=== PATIENT | female | born 1995 | race African-American/Black ===

== ENCOUNTER 2019-08-19 15:16 | Emergency (ER) | payer MEDICAID ==
[2019-08-19] MEDS ORDERED: LORazepam INJ* 2 MG/ML 1 ML VIAL ONE (15:21)
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
[2019-08-19 19:09] LABS: ABS Basophils 0.1 10^3/ul (0-0.2); ABS Lymphocytes 1.8 10^3/ul (1.0-4.8); ABS Monocytes 0.2 10^3/ul (0-0.8); ABS Neutrophils 4.5 10^3/ul (1.5-7.7); Eosinophil % 0.2 %; Hematocrit 41 % (35-47); Lymphocyte % 27.6 %; Mean Corpuscular HGB Conc 34 g/dL (31-36); Mean Corpuscular Hemoglobin 32 pg (27-31); Mean Corpuscular Volume 95 fL (80-97); Mean Platelet Volume 7.5 fL (7.4-10.4); Nucleated Red Blood Cells % 0.1; Platelet Count 268 10^3/uL (150-450); Red Blood Count 4.34 10^6 /uL (3.70-4.87); Red Cell Distribution Width 14 % (10-15); White Blood Count 6.7 10^3/uL (3.5-10.8)
[2019-08-19 19:23] LABS: Urine Benzodiazepine Screen None Detected (None Detect); Urine Opiates Screen None Detected (None Detect)
[2019-08-19 19:23] LABS: ALT 13 U/L (7-52); AST 22 U/L (13-39); Albumin 4.5 g/dL (3.2-5.2); Albumin/Globulin Ratio 1.4 (1-3); Alkaline Phosphatase 60 U/L (34-104); Anion Gap 5 mmol/L (2-11); Blood Urea Nitrogen 15 mg/dL (6-24); CO2 Carbon Dioxide 27 mmol/L (22-32); Calcium 9.9 mg/dL (8.6-10.3); Chloride 106 mmol/L (101-111); EGFR African American 110.1 (>60); Globulin 3.3 g/dL (2-4); Glucose 94 mg/dL (70-100); Potassium 3.7 mmol/L (3.5-5.0); Sodium 138 mmol/L (135-145); Total Protein 7.8 g/dL (6.4-8.9)
[2019-08-19 19:29] LABS: HCG Pregnancy < 0.60 mIU/mL
[2019-08-19 19:54] LABS: Acetaminophen < 15 mcg/mL; Alcohol < 10 mg/dL (<10); Salicylate < 2.50 mg/dL (<30)
[2019-08-19 20:12] VITALS: BP 118/87
== END 2019-08-19 20:11 | disposition home or self-care (01) ==
LOC: ED 15:16
DX: F39 Unspecified mood [affective] disorder (principal); F31.9 Bipolar disorder, unspecified; F17.210 Nicotine dependence, cigarettes, uncomplicated
CPT/HCPCS: 36415; 80053; 80307; 80320; 80329; 84702; 85025; 99285; G0480; J2060

== ENCOUNTER 2020-04-05 12:42 | Inpatient (IN) ==
[2020-04-05] MEDS ORDERED: Lorazepam PYXIS KEY PRN (13:25)
[2020-04-05] MEDS ORDERED: LORazepam 2 mg VIAL 1 ml IM ONE (13:25)
[2020-04-05] MEDS ORDERED: diPHENhydraMINE IV 50 MG/ML 1 ml VIAL (BENADRYL) IM ONE (13:25)
[2020-04-05] MEDS ORDERED: Haloperidol 5 mg/ml SDV IV/IM 5 MG/ML AMP IM ONE (13:26)
[2020-04-05] MEDS ORDERED: LORazepam 2 mg VIAL 1 ml ONE (13:27)
[2020-04-05 14:44] LABS: ABS Lymphocytes 1.8 10^3/ul (1.0-4.8); ABS Monocytes 0.2 10^3/ul (0-0.8); ABS Neutrophils 2.9 10^3/ul (1.5-7.7); Eosinophil % 0.6 %; Hematocrit 43 % (35-47); Hemoglobin 14.2 g/dL (12.0-16.0); Lymphocyte % 36.2 %; Mean Corpuscular HGB Conc 33 g/dL (31-36); Mean Corpuscular Hemoglobin 32 pg (27-31); Mean Corpuscular Volume 95 fL (80-97); Mean Platelet Volume 8.7 fL (7.4-10.4); Platelet Count 237 10^3/uL (150-450); Red Blood Count 4.46 10^6 /uL (3.70-4.87); Red Cell Distribution Width 13 % (10-15)
[2020-04-05 15:05] LABS: HCG Pregnancy < 0.60 mIU/mL
[2020-04-05 15:07] LABS: ALT 9 U/L (7-52); AST 21 U/L (13-39); Albumin 4.6 g/dL (3.2-5.2); Albumin/Globulin Ratio 1.6 (1-3); Alkaline Phosphatase 53 U/L (34-104); Anion Gap 7 mmol/L (2-11); BUN/Creatinine Ratio 15.9 (8-20); Blood Urea Nitrogen 14 mg/dL (6-24); CO2 Carbon Dioxide 24 mmol/L (22-32); Calcium 9.7 mg/dL (8.6-10.3); Chloride 107 mmol/L (101-111); EGFR African American 97.2 (>60); EGFR Non-African American 80.4 (>60); Globulin 2.9 g/dL (2-4); Glucose 108 mg/dL (70-100); Potassium 3.6 mmol/L (3.5-5.0); Sodium 138 mmol/L (135-145); Total Protein 7.5 g/dL (6.4-8.9)
[2020-04-05 15:38] LABS: Acetaminophen < 15 mcg/mL; Alcohol, S < 10 mg/dL (<10); Salicylate < 2.50 mg/dL (<30)
[2020-04-05] MEDS ORDERED: Al Hydrox/Mg Hydrox/Simet LIQ 30 ML UDC PO PRN (19:56)
[2020-04-05] MEDS ORDERED: Nicotine GUM 2MG FRUIT FLAVOR PO PRN (20:00)
[2020-04-06] MEDS ORDERED: Influenza VAC *QUAD* 2020-21* 0.5 ML SYRINGE IM ONE (09:00)
[2020-04-06] MEDS: Vitamin THERAPEUTIC TAB PO SCH (11:25)
[2020-04-07] MEDS: Vitamin THERAPEUTIC TAB PO SCH (10:30)
[2020-04-07] MEDS ORDERED: Albuterol HFA INHALER 8 gm MDI INH PRN (13:25)
[2020-04-08] MEDS: Vitamin THERAPEUTIC TAB PO SCH (10:44)
[2020-04-09] MEDS: Vitamin THERAPEUTIC TAB PO SCH (11:34)
[2020-04-10] MEDS: Vitamin THERAPEUTIC TAB PO SCH (09:01)
[2020-04-11] MEDS ORDERED: diPHENhydraMINE IV 50 MG/ML 1 ml VIAL (BENADRYL) IM ONE (07:30)
[2020-04-11] MEDS ORDERED: LORazepam 2 mg VIAL 1 ml IM ONE (07:30)
[2020-04-11] MEDS ORDERED: Haloperidol 5 mg/ml SDV IV/IM 5 MG/ML AMP IM ONE (07:30)
[2020-04-11] MEDS ORDERED: Lorazepam PYXIS KEY ONE (07:32)
[2020-04-11] MEDS ORDERED: diPHENhydraMINE IV 50 MG/ML 1 ml VIAL (BENADRYL) ONE (07:32)
[2020-04-11] MEDS ORDERED: Haloperidol 5 mg/ml SDV IV/IM 5 MG/ML AMP ONE (07:33)
[2020-04-11] MEDS ORDERED: LORazepam 2 mg VIAL 1 ml ONE (07:33)
[2020-04-11] MEDS: Vitamin THERAPEUTIC TAB PO SCH (10:25)
[2020-04-12] MEDS ORDERED: Haloperidol 5 mg/ml SDV IV/IM 5 MG/ML AMP IM ONE (08:05)
[2020-04-12] MEDS ORDERED: Lorazepam PYXIS KEY PRN (08:05)
[2020-04-12] MEDS ORDERED: Haloperidol 5 mg/ml SDV IV/IM 5 MG/ML AMP ONE (08:05)
[2020-04-12] MEDS ORDERED: Lorazepam PYXIS KEY ONE (08:05)
[2020-04-12] MEDS ORDERED: LORazepam 2 mg VIAL 1 ml IM ONE (08:05)
[2020-04-12] MEDS ORDERED: LORazepam 2 mg VIAL 1 ml ONE (08:07)
[2020-04-12] MEDS: Vitamin THERAPEUTIC TAB PO SCH (13:20)
[2020-04-13] MEDS: Vitamin THERAPEUTIC TAB PO SCH (08:17)
[2020-04-14] MEDS: Vitamin THERAPEUTIC TAB PO SCH (08:23)
[2020-04-15] MEDS: Vitamin THERAPEUTIC TAB PO SCH (08:09)
[2020-04-16] MEDS: Vitamin THERAPEUTIC TAB PO SCH (08:16)
[2020-04-16] MEDS ORDERED: OLANzapine 5 mg TAB*ODT PO ONE (18:00)
[2020-04-17] MEDS: Vitamin THERAPEUTIC TAB PO SCH (11:17)
[2020-04-18] MEDS: Vitamin THERAPEUTIC TAB PO SCH (08:24)
[2020-04-19] MEDS: Vitamin THERAPEUTIC TAB PO SCH (07:41)
[2020-04-20] MEDS: Vitamin THERAPEUTIC TAB PO SCH (08:41)
[2020-04-21] MEDS: Vitamin THERAPEUTIC TAB PO SCH (08:38)
[2020-04-22] MEDS: Vitamin THERAPEUTIC TAB PO SCH (07:39)
[2020-04-23] MEDS: Vitamin THERAPEUTIC TAB PO SCH (09:24)
[2020-04-24] MEDS: Vitamin THERAPEUTIC TAB PO SCH (07:25)
[2020-04-24 08:13] VITALS: BP 104/67
== END 2020-04-24 09:20 | DRG 750 ==
LOC: ED 12:42 → BSU 18:38
PROVIDERS: ADMIT Psychiatry & Neurology Psychiatry; ATTEND Psychiatry & Neurology Psychiatry

== ENCOUNTER 2020-09-16 11:02 | Inpatient (IN) ==
[2020-09-16] MEDS ORDERED: diPHENhydraMINE IV 50 MG/ML 1 ml VIAL (BENADRYL) IM ONE (11:04)
[2020-09-16] MEDS ORDERED: Lorazepam PYXIS KEY PRN (11:05)
[2020-09-16] MEDS ORDERED: Haloperidol 5 mg/ml SDV IV/IM 5 MG/ML AMP IM ONE (11:05)
[2020-09-16] MEDS ORDERED: LORazepam 2 mg VIAL 1 ml IM ONE (11:05)
[2020-09-16] MEDS ORDERED: LORazepam 2 mg VIAL 1 ml ONE (11:06)
[2020-09-16] MEDS ORDERED: Nicotine PATCH 14 MG/24 HR PATCH TRANSDERM ONE (11:37)
[2020-09-16] MEDS ORDERED: Al Hydrox/Mg Hydrox/Simet LIQ 30 ML UDC PO PRN (12:20)
[2020-09-17 14:48] LABS: ABS Lymphocytes 1.9 10^3/ul (1.0-4.8); ABS Monocytes 0.4 10^3/ul (0-0.8); Hematocrit 39 % (35-47); Hemoglobin 13.1 g/dL (12.0-16.0); Lymphocyte % 22.5 %; Mean Corpuscular HGB Conc 34 g/dL (31-36); Mean Corpuscular Hemoglobin 32 pg (27-31); Mean Corpuscular Volume 95 fL (80-97); Mean Platelet Volume 7.1 fL (7.4-10.4); Platelet Count 293 10^3/uL (150-450); Red Blood Count 4.08 10^6 /uL (3.70-4.87); Red Cell Distribution Width 14 % (10-15); White Blood Count 8.4 10^3/uL (3.5-10.8)
[2020-09-17 19:10] LABS: Albumin 4.3 g/dL (3.2-5.2); Anion Gap 6 mmol/L (2-11); CO2 Carbon Dioxide 27 mmol/L (22-32); Calcium 9.4 mg/dL (8.6-10.3); Chloride 106 mmol/L (101-111); Potassium 3.8 mmol/L (3.5-5.0); Sodium 139 mmol/L (135-145)
[2020-09-17 19:16] LABS: ALT 19 U/L (7-52); AST 29 U/L (13-39); Albumin/Globulin Ratio 1.8 (1-3); Alkaline Phosphatase 56 U/L (34-104); Blood Urea Nitrogen 18 mg/dL (6-24); EGFR African American 91.5 (>60); EGFR Non-African American 75.6 (>60); Globulin 2.4 g/dL (2-4); Glucose 81 mg/dL (70-100); Total Protein 6.7 g/dL (6.4-8.9)
[2020-09-17 19:54] LABS: HCG Pregnancy < 0.60 mIU/mL
[2020-09-21 08:24] LABS: HDL Cholesterol 82.2 mg/dL
[2020-09-21] MEDS: Lactulose 30 ml UDC PO SCH (20:14)
[2020-09-22] MEDS: Lactulose 30 ml UDC PO SCH (20:10)
[2020-09-23] MEDS: Lactulose 30 ml UDC PO SCH (19:56)
[2020-09-24] MEDS: Lactulose 30 ml UDC PO SCH (20:27)
[2020-09-25 16:07] LABS: ABS Basophils 0.1 10^3/ul (0-0.2); ABS Lymphocytes 2.5 10^3/ul (1.0-4.8); ABS Monocytes 0.4 10^3/ul (0-0.8); ABS Neutrophils 4.9 10^3/ul (1.5-7.7); Hematocrit 39 % (35-47); Lymphocyte % 31.2 %; Mean Corpuscular HGB Conc 34 g/dL (31-36); Mean Corpuscular Hemoglobin 32 pg (27-31); Mean Corpuscular Volume 95 fL (80-97); Mean Platelet Volume 7.4 fL (7.4-10.4); Platelet Count 250 10^3/uL (150-450); Red Blood Count 4.09 10^6 /uL (3.70-4.87); Red Cell Distribution Width 14 % (10-15); White Blood Count 7.9 10^3/uL (3.5-10.8)
[2020-09-25] MEDS: Lactulose 30 ml UDC PO SCH (20:40)
[2020-09-26] MEDS: Lactulose 30 ml UDC PO SCH (20:22)
[2020-09-27] MEDS: Albuterol HFA INHALER 8 gm MDI INH PRN (16:20)
[2020-09-27] MEDS: Lactulose 30 ml UDC PO SCH (20:17)
[2020-09-28] MEDS: Albuterol HFA INHALER 8 gm MDI INH PRN ×2 (12:43→18:03)
[2020-09-28] MEDS: Lactulose 30 ml UDC PO SCH (20:07)
[2020-09-29] MEDS: Albuterol HFA INHALER 8 gm MDI INH PRN ×3 (11:29→20:20)
[2020-09-29] MEDS: CMC:Lactase Enzyme (NF) 3,000 UNIT TAB PO SCH (17:10)
[2020-09-29] MEDS: Lactulose 30 ml UDC PO SCH (20:20)
[2020-09-30] MEDS: CMC:Lactase Enzyme (NF) 3,000 UNIT TAB PO SCH ×3 (07:54→16:57)
[2020-09-30] MEDS: Albuterol HFA INHALER 8 gm MDI INH PRN (10:56)
[2020-09-30] MEDS: Lactulose 30 ml UDC PO SCH (20:17)
[2020-10-01 08:14] LABS: ABS Basophils 0.1 10^3/ul (0-0.2); ABS Lymphocytes 2.5 10^3/ul (1.0-4.8); ABS Monocytes 0.4 10^3/ul (0-0.8); ABS Neutrophils 3.7 10^3/ul (1.5-7.7); Hematocrit 42 % (35-47); Hemoglobin 13.8 g/dL (12.0-16.0); Lymphocyte % 37.3 %; Mean Corpuscular HGB Conc 33 g/dL (31-36); Mean Corpuscular Hemoglobin 32 pg (27-31); Mean Corpuscular Volume 96 fL (80-97); Mean Platelet Volume 7.3 fL (7.4-10.4); Nucleated Red Blood Cells % 0.1; Platelet Count 219 10^3/uL (150-450); Red Blood Count 4.32 10^6 /uL (3.70-4.87); Red Cell Distribution Width 14 % (10-15); White Blood Count 6.6 10^3/uL (3.5-10.8)
[2020-10-01] MEDS: CMC:Lactase Enzyme (NF) 3,000 UNIT TAB PO SCH ×2 (10:15→11:54)
[2020-10-01 11:52] VITALS: BP 109/55
== END 2020-10-01 13:50 | disposition home or self-care (01) | DRG 750 ==
LOC: ED 11:02 → BSU 12:20 → ED 14:32
PROVIDERS: ADMIT Psychiatry & Neurology Psychiatry; ATTEND Psychiatry & Neurology Psychiatry

== ENCOUNTER 2021-02-09 16:22 | Inpatient (IN) ==
[2021-02-09 17:01] LABS: ABS Lymphocytes 2.3 10^3/ul (1.0-4.8); ABS Monocytes 0.3 10^3/ul (0-0.8); ABS Neutrophils 4.4 10^3/ul (1.5-7.7); Hematocrit 39 % (35-47); Hemoglobin 13.3 g/dL (12.0-16.0); Lymphocyte % 32.5 %; Mean Corpuscular HGB Conc 34 g/dL (31-36); Mean Corpuscular Hemoglobin 32 pg (27-31); Mean Corpuscular Volume 94 fL (80-97); Mean Platelet Volume 7.6 fL (7.4-10.4); Nucleated Red Blood Cells % 0.1; Platelet Count 344 10^3/uL (150-450); Red Blood Count 4.13 10^6 /uL (3.70-4.87); Red Cell Distribution Width 14 % (10-15)
[2021-02-09 17:06] LABS: Urine Appearance Cloudy; Urine Bilirubin Negative (Negative); Urine Blood Negative (Negative); Urine Color Amber; Urine Glucose Negative (Negative); Urine Ketones Trace (Negative); Urine Nitrite Negative (Negative); Urine Protein 1+(30 mg/dL) (Negative); Urine Specific Gravity 1.034 (1.002-1.030); Urine Urobilinogen Negative (Negative)
[2021-02-09 17:13] LABS: Urine Bacteria Absent (Absent); Urine Red Blood Cell Absent (Absent); Urine Squamous Epithelial Cell Present (Absent); Urine White Blood Cell Absent (Absent)
[2021-02-09 17:19] LABS: ALT 8 U/L (7-52); AST 15 U/L (13-39); Albumin 4.3 g/dL (3.2-5.2); Albumin/Globulin Ratio 1.5 (1-3); Alkaline Phosphatase 48 U/L (35-149); Anion Gap 7 mmol/L (2-11); Blood Urea Nitrogen 16 mg/dL (6-24); CO2 Carbon Dioxide 23 mmol/L (22-32); Calcium 8.9 mg/dL (8.6-10.3); Chloride 107 mmol/L (101-111); EGFR African American 96.4 (>60); EGFR Non-African American 79.6 (>60); Globulin 2.8 g/dL (2-4); Glucose 106 mg/dL (70-100); Potassium 3.5 mmol/L (3.5-5.0); Sodium 137 mmol/L (135-145); Total Protein 7.1 g/dL (6.4-8.9)
[2021-02-09 17:19] LABS: Urine Benzodiazepine Screen None Detected (None Detect); Urine Cannabinoids Screen Presumptive Positive (None Detect); Urine Opiates Screen None Detected (None Detect)
[2021-02-09 17:24] LABS: Acetaminophen < 15 mcg/mL; Alcohol, S < 13 mg/dL (<13); Salicylate < 2.50 mg/dL (<30)
[2021-02-09 17:25] LABS: HCG Pregnancy < 0.60 mIU/mL
[2021-02-09 17:38] LABS: TSH Ultra Thyroid Stim Horm 1.05 mcIU/mL (0.34-5.60)
[2021-02-09 22:40] LABS: Rapid COVID-19 Molecular Undetected (Undetected)
[2021-02-10] MEDS ORDERED: Al Hydrox/Mg Hydrox/Simet LIQ 30 ML UDC PO PRN (00:39)
[2021-02-10] MEDS: Vitamin THERAPEUTIC TAB PO SCH (11:55)
[2021-02-11] MEDS: Vitamin THERAPEUTIC TAB PO SCH (09:41)
[2021-02-12] MEDS: Vitamin THERAPEUTIC TAB PO SCH (10:11)
[2021-02-12] MEDS ORDERED: Paliperidone SUSTENNA 234 MG/1.5 ML IM ONE (14:00)
[2021-02-13] MEDS ORDERED: Flu vaccine *QUAD* 2021-22* 0.5 ML SYRINGE IM ONE (09:00)
[2021-02-13] MEDS: Vitamin THERAPEUTIC TAB PO SCH (09:52)
[2021-02-13] MEDS: Albuterol HFA INHALER 8 gm MDI INH PRN (21:09)
[2021-02-14] MEDS: Vitamin THERAPEUTIC TAB PO SCH (11:35)
[2021-02-14] MEDS: Albuterol HFA INHALER 8 gm MDI INH PRN (22:24)
[2021-02-15] MEDS: Vitamin THERAPEUTIC TAB PO SCH (09:32)
[2021-02-15 21:55] VITALS: BP 99/63
[2021-02-16] MEDS: Vitamin THERAPEUTIC TAB PO SCH (09:45)
[2021-02-16] MEDS ORDERED: Paliperidone SUSTENNA 156 MG/1 ML IM ONE (16:00)
[2021-02-16] MEDS: Albuterol HFA INHALER 8 gm MDI INH PRN (16:32)
[2021-02-17 08:17] LABS: HDL Cholesterol 54.6 mg/dL
[2021-02-17] MEDS ORDERED: Paliperidone SUSTENNA 156 MG/1 ML IM ONE (09:00)
[2021-02-17] MEDS: Vitamin THERAPEUTIC TAB PO SCH (09:57)
== END 2021-02-17 11:30 | disposition home or self-care (01) | DRG 750 ==
LOC: ED 16:22 → BSU 23:59
PROVIDERS: ADMIT Psychiatry & Neurology Psychiatry; ATTEND Psychiatry & Neurology Psychiatry

== ENCOUNTER 2021-09-09 16:24 | Inpatient (IN) ==
[2021-09-09 17:31] LABS: Urine Appearance Cloudy; Urine Bilirubin Negative (Negative); Urine Blood Negative (Negative); Urine Color Yellow; Urine Glucose Negative (Negative); Urine Ketones Trace (Negative); Urine Nitrite Negative (Negative); Urine Protein Negative (Negative); Urine Specific Gravity 1.033 (1.002-1.030); Urine Urobilinogen Negative (Negative)
[2021-09-09 17:32] LABS: ABS Monocytes 0.4 10^3/ul (0-0.8); ABS Neutrophils 4.7 10^3/ul (1.5-7.7); Eosinophil % 0.1 %; Hematocrit 39 % (35-47); Hemoglobin 13.3 g/dL (12.0-16.0); Lymphocyte % 27.9 %; Mean Corpuscular HGB Conc 34 g/dL (31-36); Mean Corpuscular Hemoglobin 32 pg (27-31); Mean Corpuscular Volume 93 fL (80-97); Mean Platelet Volume 7.7 fL (7.4-10.4); Nucleated Red Blood Cells % 0.2; Platelet Count 294 10^3/uL (150-450); Red Blood Count 4.18 10^6 /uL (3.70-4.87); Red Cell Distribution Width 14 % (10-15)
[2021-09-09 17:44] LABS: Urine Benzodiazepine Screen None Detected (None Detect); Urine Cannabinoids Screen Presumptive Positive (None Detect); Urine Opiates Screen None Detected (None Detect)
[2021-09-09 18:21] LABS: ALT 8 U/L (7-52); AST 16 U/L (13-39); Acetaminophen < 15 mcg/mL; Albumin 4.7 g/dL (3.2-5.2); Albumin/Globulin Ratio 1.6 (1-3); Alcohol, S < 13 mg/dL (<13); Alkaline Phosphatase 51 U/L (35-149); Anion Gap 9 mmol/L (2-11); Blood Urea Nitrogen 16 mg/dL (6-24); CO2 Carbon Dioxide 25 mmol/L (22-32); Calcium 9.7 mg/dL (8.6-10.3); Chloride 106 mmol/L (101-111); Globulin 2.9 g/dL (2-4); Glucose 82 mg/dL (70-100); Salicylate < 2.50 mg/dL (<30); Sodium 140 mmol/L (135-145); Total Protein 7.6 g/dL (6.4-8.9); eGFR CKD-EPI 99.5 (>60)
[2021-09-09 18:28] LABS: HCG Pregnancy < 0.60 mIU/mL
[2021-09-09] MEDS ORDERED: Al Hydrox/Mg Hydrox/Simet LIQ 30 ML UDC PO PRN (19:17)
[2021-09-09] MEDS ORDERED: Nicotine GUM 2MG FRUIT FLAVOR PO PRN (19:18)
[2021-09-10] MEDS: Multivitamins/Minerals TAB PO SCH (07:13)
[2021-09-11] MEDS: Multivitamins/Minerals TAB PO SCH (12:11)
[2021-09-12] MEDS: Multivitamins/Minerals TAB PO SCH (09:42)
[2021-09-12] MEDS ORDERED: Albuterol HFA INHALER 8 gm MDI INH PRN (17:03)
[2021-09-13] MEDS: Multivitamins/Minerals TAB PO SCH (10:00)
[2021-09-14 07:55] VITALS: BP 114/72
[2021-09-14] MEDS: Multivitamins/Minerals TAB PO SCH (11:27)
[2021-09-15] MEDS: Multivitamins/Minerals TAB PO SCH (08:32)
== END 2021-09-15 11:17 | disposition home or self-care (01) | DRG 750 ==
LOC: ED 16:24 → BSU 18:30 → ED 20:07 → BSU 20:07
PROVIDERS: ADMIT Psychiatry & Neurology Psychiatry; ATTEND Psychiatry & Neurology Psychiatry

== ENCOUNTER 2023-09-08 22:32 | Inpatient (IN) ==
[2023-09-08 23:56] LABS: ABS Basophils 0.1 10^3/uL (0.0-0.1); ABS Eosinophils 0.1 10^3/uL (0.0-0.5); ABS Lymphocytes 2.2 10^3/uL (1.0-4.8); ABS Monocytes 0.5 10^3/uL (0.0-0.9); ABS Nucleated RBC 0.02 10^3/ul; Eosinophil % 0.7 %; Hematocrit 40.3 % (35-45); Hemoglobin 13.8 g/dL (11.5-14.3); Mean Corpuscular Hemoglobin 31.1 pg (27-33); Mean Corpuscular Hgb Conc 34.1 g/dL (31-36); Mean Corpuscular Volume 91.1 fL (80-97); Mean Platelet Volume 8.6 fL (7.5-11.2); Nucleated Red Blood Cells % 0.2 %/100WBC (0.0-0.8); Platelet Count 273 10^3/uL (150-450); Red Blood Count 4.43 10^6/uL (3.63-4.92); Red Cell Distribution Width 15.9 % (12-17); White Blood Count 9.9 10^3/uL (3.8-11.8)
[2023-09-09 00:21] LABS: Urine Appearance Clear; Urine Bilirubin Negative (Negative); Urine Blood 3+ (Negative); Urine Color Yellow; Urine Glucose Negative (Negative); Urine Ketones Trace (Negative); Urine Nitrite Negative (Negative); Urine Protein 1+ (>=30 mg/dL) (Negative); Urine Specific Gravity 1.024 (1.002-1.030); Urine Urobilinogen 1+ (Negative); Urine pH 6.5 (5.0-8.0)
[2023-09-09 00:26] LABS: Urine Benzodiazepine Screen None Detected (None Detect); Urine Cannabinoids Screen None Detected (None Detect); Urine Opiates Screen None Detected (None Detect)
[2023-09-09 00:47] LABS: Urine Bacteria Absent /HPF (Absent); Urine Red Blood Cell Trace(0-2/hpf) /HPF (0-Trace); Urine Squamous Epithelial Cell Present /HPF (Absent); Urine White Blood Cell Trace(0-5/hpf) /HPF (0-Trace)
[2023-09-09 00:59] LABS: ALT 12 U/L (7-52); AST 15 U/L (13-39); Acetaminophen < 15 mcg/mL; Albumin 4.5 g/dL (3.2-5.2); Albumin/Globulin Ratio 1.5 (1-3); Alcohol, S < 13 mg/dL (<13); Alkaline Phosphatase 55 U/L (35-149); Anion Gap 10 mmol/L (2-16); Blood Urea Nitrogen 7 mg/dL (6-24); CO2 Carbon Dioxide 22 mmol/L (22-32); Calcium 9.6 mg/dL (8.6-10.3); Chloride 105 mmol/L (101-111); Glucose 137 mg/dL (70-100); Potassium 3.2 mmol/L (3.5-5.0); Salicylate < 2.50 mg/dL (<30); Sodium 137 mmol/L (135-145); Total Bilirubin 0.6 mg/dL (0.2-1.0); Total Protein 7.5 g/dL (6.4-8.9); eGFR CKD-EPI 104.1 (>60)
[2023-09-09 01:06] LABS: HCG Pregnancy < 0.60 mIU/mL
[2023-09-09] MEDS ORDERED: Al Hydrox/Mg Hydrox/Simet LIQ 30 ML UDC PO PRN (01:09)
[2023-09-09 01:14] LABS: TSH Ultra Thyroid Stim Horm 1.96 mcIU/mL (0.34-5.60)
[2023-09-09] MEDS: Nicotine GUM 2MG FRUIT FLAVOR PO PRN (12:12)
[2023-09-09] MEDS: Vitamin THERAPEUTIC TAB PO SCH (12:13)
[2023-09-09] MEDS: Nicotine PATCH 14 MG/24 HR PATCH ONE (12:26)
[2023-09-12] MEDS: Nicotine PATCH 14 MG/24 HR PATCH ONE (20:46)
[2023-09-12] MEDS: Nicotine PATCH 14 MG/24 HR PATCH TRANSDERM SCH (20:46)
[2023-09-13] MEDS: Paliperidone SUSTENNA 234 MG/1.5 ML IM ONE (17:20)
[2023-09-14 12:14] VITALS: BP 123/76
[2023-09-16] MEDS: Paliperidone SUSTENNA 156 MG/1 ML IM ONE (08:11)
== END 2023-09-16 11:20 | disposition home or self-care (01) | DRG 750 ==
LOC: ED 22:32 → EDHOLD 09-09 00:45 → BSU 09-09 07:25
PROVIDERS: ADMIT Psychiatry & Neurology Psychiatry; ATTEND Psychiatry & Neurology Psychiatry

== ENCOUNTER 2023-10-20 21:32 | Inpatient (IN) ==
[2023-10-20 22:50] LABS: ABS Basophils 0.1 10^3/uL (0.0-0.1); ABS Eosinophils 0.3 10^3/uL (0.0-0.5); ABS Monocytes 0.4 10^3/uL (0.0-0.9); ABS Neutrophils 5.5 10^3/uL (1.5-7.6); ABS Nucleated RBC 0.02 10^3/ul; Eosinophil % 2.7 %; Hematocrit 38.5 % (35-45); Hemoglobin 12.9 g/dL (11.5-14.3); Lymphocyte % 32.9 %; Mean Corpuscular Hemoglobin 31.2 pg (27-33); Mean Corpuscular Hgb Conc 33.4 g/dL (31-36); Mean Corpuscular Volume 93.2 fL (80-97); Nucleated Red Blood Cells % 0.2 %/100WBC (0.0-0.8); Platelet Count 269 10^3/uL (150-450); Red Blood Count 4.13 10^6/uL (3.63-4.92); Red Cell Distribution Width 15.4 % (12-17); White Blood Count 9.2 10^3/uL (3.8-11.8)
[2023-10-20 22:55] LABS: Urine Appearance Turbid; Urine Bilirubin Negative (Negative); Urine Blood 2+ (Negative); Urine Color Yellow; Urine Glucose Negative (Negative); Urine Ketones Trace (Negative); Urine Nitrite Negative (Negative); Urine Protein Trace (Negative); Urine Specific Gravity 1.033 (1.002-1.030); Urine Urobilinogen Negative (Negative)
[2023-10-20 23:04] LABS: Urine Bacteria 1+ /HPF (Absent); Urine Red Blood Cell 3+(>10/hpf) /HPF (0-Trace); Urine Squamous Epithelial Cell Present /HPF (Absent); Urine White Blood Cell 1+(6-10/hpf) /HPF (0-Trace)
[2023-10-20 23:11] LABS: Urine Benzodiazepine Screen None Detected (None Detect); Urine Cannabinoids Screen None Detected (None Detect); Urine Opiates Screen None Detected (None Detect)
[2023-10-20] MEDS ORDERED: Al Hydrox/Mg Hydrox/Simet LIQ 30 ML UDC PO PRN (23:37)
[2023-10-20 23:48] LABS: ALT 12 U/L (7-52); AST 19 U/L (13-39); Acetaminophen < 15 mcg/mL; Albumin 4.1 g/dL (3.2-5.2); Albumin/Globulin Ratio 1.7 (1-3); Alcohol, S < 13 mg/dL (<13); Alkaline Phosphatase 53 U/L (35-149); Anion Gap 10 mmol/L (2-16); Blood Urea Nitrogen 15 mg/dL (6-24); CO2 Carbon Dioxide 24 mmol/L (22-32); Calcium 9.1 mg/dL (8.6-10.3); Chloride 106 mmol/L (101-111); Creatinine, Serum 0.89 mg/dL (0.51-0.95); Globulin 2.4 g/dL (2-4); Potassium 3.8 mmol/L (3.5-5.0); Salicylate < 2.50 mg/dL (<30); Sodium 140 mmol/L (135-145); Total Bilirubin 0.4 mg/dL (0.2-1.0); Total Protein 6.5 g/dL (6.4-8.9); eGFR CKD-EPI 91.6 (>60)
[2023-10-20 23:54] LABS: TSH Ultra Thyroid Stim Horm 2.38 mcIU/mL (0.34-5.60)
[2023-10-21 00:05] LABS: Glucose 85 mg/dL (70-100)
[2023-10-21] MEDS: Vitamin THERAPEUTIC TAB PO SCH (10:00)
[2023-10-21] MEDS ORDERED: OLANZapine 5 mg TAB *ODT PO PRN (11:30)
[2023-10-21 12:31] LABS: HCG Pregnancy < 0.60 mIU/mL
[2023-10-21] MEDS ORDERED: Nicotine GUM 4MG FRUIT FLAVOR PO PRN (15:43)
[2023-10-22] MEDS ORDERED: Albuterol HFA INHALER 8 gm MDI INH PRN (15:34)
[2023-10-22] MEDS: [UNRECOGNIZED DRUG - OTHER] IM ONE (17:50)
[2023-10-27 09:15] VITALS: BP 85/50
== END 2023-10-27 11:30 | disposition home or self-care (01) | DRG 750 ==
LOC: ED 21:32 → EDHOLD 23:22 → BSU 10-21 00:09
PROVIDERS: ADMIT Psychiatry & Neurology Psychiatry; ATTEND Psychiatry & Neurology Psychiatry